=== PATIENT | male | born 1955 | race Caucasian/White ===

== ENCOUNTER 2023-09-06 14:29 | Inpatient (IN) | payer MEDICARE, OTHER, SELFPAY ==
[2023-09-05] VITALS (12 sets, daily range): BP systolic 134–149; BP diastolic 84–99; BMI 29.2; BMI 29.4
[2023-09-05 04:00] LABS: % Basophils 0.3 % (0-2); % Eosinophils 0.2 % (0-6); % Immature Granulocytes 0.2 % (0-0.5); % Lymphocytes 16.3 % (20.5-51.1); % Monocytes 10.4 % (1.7-9.3); % Neutrophils 72.6 % (42.2-75.2); Absolute Lymphocytes 1.1 10^3/uL (1.2-3.4); Absolute Monocytes 0.7 10^3/uL (0.1-0.6); Absolute Neutrophils 4.7 10^3/uL (1.4-6.5); Hematocrit 45.7 % (39.0-52.0); Mean Corpuscular Hgb 31.3 pg (27.0-31.0); Mean Corpuscular Volume 89.3 fL (80.0-94.0); Mean Platelet Volume 8.8 fL (7.4-10.4); Nucleated Red Blood Cells % 0 % (-); Platelet Count 195 10^3/uL (130-400); Red Blood Cell Count 5.12 10^6/uL (4.70-6.10); Red Cell Dist. Width 13.2 % (11.5-14.5); White Blood Cell Count 6.4 10^3/uL (4.8-10.8)
[2023-09-05 04:14] LABS: Lactic Acid 1.7 mmol/L (0.7-2.0)
[2023-09-05] MEDS: NSS 1000 IV ×2 (04:46→06:31)
[2023-09-05 05:03] LABS: ALT (SGPT) 23 U/L (0-50); AST (SGOT) 29 U/L (17-59); Albumin 4.3 g/dl (3.5-5.0); Alkaline Phosphatase 91 U/L (38-126); Blood Urea Nitrogen 16 mg/dl (9-20); Calcium 9.6 mg/dl (8.4-10.2); Carbon Dioxide 26 mmol/L (22-30); Chloride 102 mmol/L (98-107); Estimated Creatinine Clearance > 125 ml/min; Glucose 135 mg/dl (70-99); Lipase 95 U/L (23-300); Potassium 4.2 mmol/L (3.5-5.1); Sodium 139 mmol/L (135-145); Total Bilirubin 0.7 mg/dl (0.2-1.3); Total Protein 7.4 g/dl (6.3-8.2); eGFR > 60.00
--- NOTE | 2023-09-05 05:12 | ED.GENMED ---
History of Present Illness
General
Chief Complaint: Abdominal Pain
Source: patient and previous hospital records (Previous hospitalizations November 2022 for appendectomy-ruptured appendicitis. Hospitalization December 2022 for intractable nausea and vomiting related to partial small bowel obstruction related to
inflammatory adhesions.)
Exam Limitations: none
Time Seen by Provider: 09/05/23 04:27
Nursing documentation reviewed up to this point in time: agreed with
Travel History
Have you had any contact with someone who has COVID-19?: No
Do you have any symptoms of coronavirus? Fever > 100 degrees, chills, cough, shortness of breath, sore throat, loss of taste or smell, muscle aches, or headache?: No
History of Present Illness
History of Present Illness:
This is a 68-year-old gentleman who has history of perforated appendicitis who underwent appendectomy November 2022 with postop course complicated by ileus, intra-abdominal abscess and small bowel obstruction requiring additional surgical procedure
for washout and right hemicolectomy. Persistent ileus required TPN and he was admitted again in December with partial small bowel obstruction secondary to inflammatory adhesions. TPN was continued and small bowel obstruction, inflammatory
adhesions resolved without requiring additional surgery.
He has done well since then but developed moderate generalized crampy lower abdominal pain that began shortly after lunch time yesterday. Abdominal pain has been intermittent but persistent throughout the evening and was quite severe tonight
prompting EMS arrival. He has had intermittent nausea with dry heaves. He passed a normal bowel movement yesterday around 1 PM. He denies fever nor chills, he denies abdominal bloating, no chest pain nor coughing or shortness of breath, no flank
pain, no dysuria and urgency and or hematuria. He has not had a fever nor chills.
He has not taken anything for discomfort and is currently pain-free.
He is unsure if current symptoms feel similar to previous partial small bowel obstruction.
Past History
Past History
ED Past Medical History: HTN, Other (Kidney stone; Perforated appendix with appendectomy November 2022, complicated postop course with ileus, abscess formation, requiring right hemicolectomy, washout procedure and prolonged course of TPN.) and Other
(Morbid obesity); Negative NIDDM or CA
ED Past Surgical History: Appendectomy, Bowel resection, Urological (left ureteral stent 11/26/21) and Other (Hernia repair)
Social History
Tobacco: Other (Cigars)
Alcohol: None
Drug: None
Personal:
Living: with family
Employment: Employed
Family History
Family History: Other (Mother with vertigo)
Phy Exam
Physical Exam
Physical Exam:
GENERAL: 68-year-old male appears his stated age, bright and alert, pleasant, appears in no acute distress. is accompanying.
EYE: anicteric
NECK: Supple, nontender, no meningismus, no significant adenopathy.
ENT: oral mucosa is moist. No rhinorrhea.
CARDIAC: Regular rate and rhythm. no murmur.
LUNGS: Clear breath sounds bilaterally, no acute respiratory distress, no wheezes/rales/rhonchi
ABDOMEN: Soft, nondistended, without focal tenderness, no r/g, no cvat. normoactive BS.
NEUROLOGICAL: Alert and oriented x3, no focal neuro deficits.
SKIN: Warm and dry, normal color, skin intact. No rash.
MUSCULOSKELETAL: No C/C/E. peripheral pulses are full and equal b/l. No palpable tenderness.
PSYCH: Normal and appropriate interaction.
Course
Orders/Labs/Results
Orders:
Orders
09/05/23 03:23
IV Insert/Care/Rem.- Treatment PRN
09/05/23 03:27
Complete Blood Count/With Diff Urgent
Lactic Acid Urgent
09/05/23 04:21
Comprehensive Metabolic Panel Urgent
Lipase Urgent
09/05/23 04:38
CT Abd/pelvis W Iv Cont Urgent
Comment:
Reason For Exam: generalized crampy lower abd pain x 1 day w N/V
09/05/23 04:45
0.9% Sodium Chloride 1000 ml [Nss] 1,000 ml IV BOLUS
09/05/23 05:20
Urinalysis Reflex To Culture Urgent
Abnormal Lab Results
09/05/23 09/05/23
03:27 04:21
MCH 31.3 H pg
(27.0-31.0)
Absolute Lymphs (auto) 1.1 L 10^3/uL
(1.2-3.4)
Absolute Monos (auto) 0.7 H 10^3/uL
(0.1-0.6)
Lymphocytes % 16.3 L %
(20.5-51.1)
Monocytes % 10.4 H %
(1.7-9.3)
Creatinine 0.6 L mg/dL
(0.7-1.3)
Glucose 135 H mg/dl
(70-99)
09/05/23 03:27
09/05/23 04:21
Vital Signs
Initial and Last Documented VS:
Initial Vital Signs
BP Pulse Ox
140/85 97
09/05/23 03:22 09/05/23 03:22
Last Documented Vital Signs
Temp Pulse Resp BP Pulse Ox
98.7 F 77 12 142/99 94
09/05/23 03:24 09/05/23 05:00 09/05/23 05:00 09/05/23 05:00 09/05/23 04:30
MDM/Problems Addressed
Differential Diagnosis Includes:
Concern for recurrent partial small bowel obstruction, renal colic with ureteric stone, gastroenteritis, colitis.
Currently pain-free and comfortable.
Labs are pending as is urinalysis.
Will plan for CT abdomen pelvis with IV contrast. Will monitor for return of pain.
Chronic conditions affecting care: Previous abdomnial surgery and Other (History of kidney stones)
*Radiology
Radiology exam reviewed: radiology read reviewed
*Pulse Oximetry
Patient hypoxic: no
*Critical Care Note
Total Time (30-74mins, 75-104mins- exclusive of procedures): Not Applicable
Update Note
Update Note:
09/05/2023 05:55 AM
Patient remains comfortable with intermittent brief waves of nausea but no return of pain. He has not been passing gas however.
Labs are reassuring with normal white blood cell count, normal chemistries, normal lactic acid.
CAT scan however shows acute small bowel obstruction with transition point in the lower abdomen. No perforation or fluid collection.
He may have early resolution of small bowel obstruction but due to continued intermittent nausea, CAT scan findings we will continue IV fluids, n.p.o. status and will admit to hospitalist service.
ED Attending Note
-
Portions of this chart may have been created with voice recognition software.� Occasional wrong word or��sound alike� substitutions may have occurred due to the inherent limitations of voice recognition software.
Discharge Plan
Departure
Patient Disposition: Admit
Date of Disposition: 09/05/23
Time of Disposition: 06:00
Admit to: Med/Surg
Admit to doctor: Anant
Presentation/result/management discussed w/ accepting MD/DO: Hospitalist
Condition: Fair
Discharge Problem:
acute small bowel obstruction
Prescriptions:
No Action
No Current Medications
0
Referrals:
Ann Nettles DO [Family Provider] -
Interventions
Interventions:
*Risk Screen - Suicide Last Done: 09/05/23 03:24
*General Assessment Last Done: 09/05/23 03:24
*Neglect/Abuse Screening Last Done: 09/05/23 03:24
*ED COVID-19 Vaccine History Last Done: 09/05/23 03:24
PG-Vyszye-Porlibztwq Assessment Last Done: 09/05/23 03:30
Discharge Date and Time
Print Language: BENINESE
--- NOTE | 2023-09-05 06:22 | HPS.HSE ---
Family Physician
-
Family Physician: Ann Nettles
Chief Complaint
-
Abd Pain
History of Present Illness
Patient is a 68y M with PMH significant for complicated appendicitis who presents to ED complaining of abdominal pain. Patient states that he had some egg salad for lunch yesterday and had a normal BM around 1:30 in the afternoon. Later in the
afternoon, he developed crampy lower abdominal pain. His symptoms persisted throughout the day. This evening he felt nauseated and he 'tried to throw up' but had only dry heaves. He had some chills at home. Patient presented to the ED for
further evaluation and treatment.
Patient denies any chronic health issues or current medications.
Medical History
Past Medical History
Past Medical History: Reports Other
Additional Past Medical History:
Nephrolithiasis
Past Surgical History: Reports Other
Additional Past Surgical History:
Appendectomy - Right Hemicolectomy - Abdominal Washout
Herniorrhaphy
Lumbar Discectomy
Cysto / Stent
Social History
Tobacco: Smoker (Occasional cigar.)
Alcohol: None
Drug: None
Personal:
Living: With Family
Family History
Family History: Not pertinent
Allergies / Home Medications
Allergies reflects when Allergies were last updated in [facility].
Home Medications with original date entered in [facility]
Allergy/Medication List:
Allergies
Allergy/AdvReac Type Severity Reaction Status Date / Time
sesame oil [Sesame Oil] Allergy Hives Verified 09/05/23 06:05
Home Medications
No Meds [No Current Medications] 09/05/23
Review of Systems
-
History Source: Patient
A 12 point ROS was completed and negative except as noted: Yes
Constitutional: Reports Chills; Denies Fever or Fatigue
Respiratory: Denies Cough or Trouble Breathing
Cardiac: Denies Chest Pain or Palpitations
Abdomen/GI: Reports Abdominal Pain and Nausea; Denies Vomiting, Diarrhea, Constipated, Bloody Stools or Black Stools
: Denies Dysuria, Frequency or Flank Pain
Musculoskeletal: Denies Joint Pain or Edema
Neurological: Denies Dizzy or Headache
Psych: Denies Depression or Anxiety
Physical Exam
Vital Signs
Vital Signs
Temp Pulse Resp BP Pulse Ox
98.7 F 77 12 142/99 94
09/05/23 03:24 09/05/23 05:00 09/05/23 05:00 09/05/23 05:00 09/05/23 04:30
Physical Exam
General: Other (68y M in no acute distress.)
HEENT: Moist mucous membranes and PERRLA
Respiratory: Clear; No Wheezes, Rales or Rhonchi
Cardiac: S1/S2 and Regular Rhythm; No Murmur
GI: Soft, Non Tender, Non Distended and Normal Bowel Sounds
Musculoskeletal: No Clubbing, No Cyanosis and No Edema
Neuro: AO x 3
Laboratory Results
-
09/05/23 03:27
09/05/23 04:21
Laboratory Results
Lactic Acid 1.7 mmol/L (0.7-2.0) 09/05/23 03:27
Total Bilirubin 0.7 mg/dl (0.2-1.3) 09/05/23 04:21
AST 29 U/L (17-59) 09/05/23 04:21
ALT 23 U/L (0-50) 09/05/23 04:21
Alkaline Phosphatase 91 U/L (38-126) 09/05/23 04:21
Lipase 95 U/L (23-300) 09/05/23 04:21
Impression/Plan
-
A/P: Patient is a 68y M with PMH significant for complicated appendicitis 11/2022 who presents to ED complaining of abdominal pain.
SBO
- Observe for further evaluation and treatment.
- CT scan shows SBO with transition point identified in the lower abdomen.
- Initial symptoms suggestive of this; however, patient states that he now feels much improved.
- Trial of clears and advance diet if this is well tolerated.
- Follow for any recurrent pain, emesis, etc.
- Consider NG decompression if recurrent symptoms.
- CT also suggests possible, mild sigmoid diverticulitis. Afebrile, non-toxic appearing and no leukocytosis. Will observe off of abx for now.
DVT Prophylaxis: Lovenox
Code Status: Full
--- NOTE | 2023-09-05 07:56 | W.PN.HOSP.TC ---
Today's Communication/Plan
-
see A/P
Assessment / Plan
Assessment / Plan
HPI: 68y M with PMH significant for complicated appendicitis who presented to ED complaining of abdominal pain. Patient states that he had some egg salad for lunch the day prior and had a normal BM around 1:30 in the afternoon. Later in the
afternoon, he developed crampy lower abdominal pain. His symptoms persisted throughout the day. In the evening he felt nauseated and he 'tried to throw up' but had only dry heaves. He had some chills at home. Patient presented to the ED for further
evaluation and treatment.
Patient denies any chronic health issues or current medications.
CT AP:
1. Small bowel obstruction. Probable point of transition in the right lower abdomen. Distal ileum shows normal caliber. No pneumoperitoneum. No signs of abscess formation or drainable collection.
2. Cholelithiasis.
3. Nonobstructive right nephrolithiasis.
4. Diverticulosis without diverticulitis. Post right colon resection.
A/P:
# SBO
CT scan shows SBO with transition point identified in the lower abdomen.
Pain has resolved but with diminished bowel sounds, will hold off on starting clears, cont IVF with RL
Follow for any recurrent pain, emesis, etc. Consider NG decompression if recurrent symptoms.
GS CS
# Mild HTN
monitor BP
DVT Prophylaxis: Lovenox
Code Status: Full
Anticipated Discharge: Within 24 hours
Subjective/Interval History
-
Date of Service: September 05, 2023
Objective Data
-
Labs:
Laboratory Results
09/05/23 09/05/23 09/05/23
03:27 04:16 04:21
WBC 6.4
Hgb 16.0
Hct 45.7
Plt Count 195
Sodium Cancelled Cancelled 139
Potassium Cancelled Cancelled 4.2
Chloride Cancelled Cancelled 102
Carbon Dioxide Cancelled Cancelled 26
BUN Cancelled Cancelled 16
Creatinine Cancelled Cancelled 0.6 L
Glucose Cancelled Cancelled 135 H
Calcium Cancelled Cancelled 9.6
Total Bilirubin Cancelled Cancelled 0.7
AST Cancelled Cancelled 29
ALT Cancelled Cancelled 23
Alkaline Phosphatase Cancelled Cancelled 91
Vital Signs:
Vital Signs
Temp Pulse Resp BP Pulse Ox
37.1 C 79 15 146/95 95
09/05/23 03:24 09/05/23 07:30 09/05/23 07:30 09/05/23 07:00 09/05/23 07:30
Review of Systems
-
Abdomen/GI: Denies Abdominal Pain (resolved ), Nausea or Vomiting
Physical Exam
-
General: Well Developed, Well Nourished, No Apparent Distress, Comfortable and Conversant; Negative Respiratory Distress
HEENT: Normocephalic, Atraumatic, Nose Appears Normal and Ears Appear Normal; Negative Oxygen
Respiratory: Clear to Auscultation and Non Labored Respirations; Negative Accessory Resp Muscle Use
Cardiac: Regular Rhythm and S1/S2
GI: Soft, Nontender and Nondistended; Negative Normal Bowel Sounds
Skin: Warm and Dry
Neuro: Awake, Alert, Oriented and AO x 3
Psych: Calm and Intact Judgement/Insight
Data Reviewed
-
CT Scan: Report Reviewed by me
Labs: Labs Reviewed by me
--- NOTE | 2023-09-05 11:13 | CM ---
Patient seen at bedside. Patient states that he lives with his in a 2 story home. Patient has no DME at home. Patient PCP dr. Nettles and he uses the [facility] in [place]. Patient reviewed with CM OBS/JARAMILLO form and signed form placed on chart.
Patient plan is for discharge home with no needs when medically appropriate. CM will continue to follow for discharge planning needs.
Plan; home with no needs.
--- NOTE | 2023-09-05 12:19 | CON.GS ---
Consultation
-
Performing Provider: liv
Reason for Consultation: SBO
Medical History
-
Chief Complaint: Abdominal pain, nausea dry heaves
History of Present Illness:
Mr. Flores is a 68-year-old male well-known to myself after having undergone laparoscopic appendectomy 12/01/2022 for perforated appendicitis. He developed a postoperative ileus, intra-abdominal abscess and resultant small bowel obstruction requiring
takeback on 12/07/2022 which was managed with subsequent right hemicolectomy. His postoperative course from this procedure was notable for prolonged ileus requiring TPN that slowly resolved but required a prolonged course of supportive care. He
eventually returned to tolerating regular diet without any obstructive symptoms.
Patient states that he has been doing well tolerating regular diet. He does not specifically report any dietary indiscretion. Yesterday at work he began feeling abdominal crampiness which progressed. He skipped dinner since he was not feeling
well. He awoke in the middle the night with worsening diffuse crampy abdominal pain and uncontrollable nausea/dry heaves prompting him to call EMS for transport to the emergency department. CT imaging suggestive of small bowel obstruction
prompting admission.
This a.m. Mr. Flores is feeling better. No residual abdominal pain. No nausea. Not passing much flatus, no bowel movement since symptoms started yet. He has not required any pain medicine since admission.
Past Medical History
Past Medical History: Other (Hypertension, obesity, history of nephrolithiasis)
Past Surgical History: Other (Appendectomy, lap right hemicolectomy, lumbar discectomy, cystoscopy with stent placement)
Social History
Tobacco: Non-Smoker
Alcohol: None
Personal:
Living: With Family
Employment: Employed
Family History
Family History: Reviewed & Not Pertinent
Allergies / Home Medications
Allergy/AdvReac Type Severity Reaction Status Date / Time
sesame oil [Sesame Oil] Allergy Hives Verified 09/05/23 06:05
�Medication �Instructions �Recorded �Confirmed �Type
Rohto Eye Drops 1 drp BOTH EYES TIDPRN PRN dry eyes 09/05/23 09/05/23 History
Vitamin C 1 tab PO HS Supplement 09/05/23 09/05/23 History
Vitamin C Chewable 2 gummy PO DAILY Supplement 09/05/23 09/05/23 History
cholecalciferol (vitamin D3) 1 tab PO HS Supplement 09/05/23 09/05/23 History
magnesium 1 tab PO HS Electrolyte Repletion 09/05/23 09/05/23 History
melatonin 10 mg tablet 10 mg PO HS Sleep 09/05/23 09/05/23 History
thiamine HCl (vitamin B1) 1 tab PO HS Supplement 09/05/23 09/05/23 History
turmeric 400 mg capsule 400 mg PO HS Supplement 09/05/23 09/05/23 History
zinc 1 tab PO HS Supplement 09/05/23 09/05/23 History
Review of Systems
-
History Source: Patient
All other systems: Negative unless noted
A 10 point review of systems was completed, and was negative except as per HPI.
Physical Exam
Vital Signs
Temp Pulse Resp BP Pulse Ox
98.9 F 72 16 134/94 96
09/05/23 08:47 09/05/23 08:47 09/05/23 08:47 09/05/23 08:47 09/05/23 08:47
09/04/23 09/05/23 09/06/23
06:59 06:59 06:59
Actual Weight 108.8 kg 109.361 kg
Body Mass Index (BMI) 29.4
Lab Results
09/05/23 03:27
09/05/23 04:21
WBC 6.4 10^3/uL (4.8-10.8) 09/05/23 03:27
Hgb 16.0 g/dL (13.0-18.0) 09/05/23 03:27
Hct 45.7 % (39.0-52.0) 09/05/23 03:27
Plt Count 195 10^3/uL (130-400) 09/05/23 03:27
Abs Immat Gran (auto) 0.0 10^3/uL (0-0.05) 09/05/23 03:27
Neutrophils % 72.6 % (42.2-75.2) 09/05/23 03:27
Physical Exam
General: Well Developed, Well Nourished, No Apparent Distress and Comfortable
HEENT: Normocephalic, Anicteric and Moist Mucous Membranes
Respiratory: Non Labored Respirations
Cardiac: Regular Rhythm
GI: Soft, Non Tender, Distended (Slight fullness of the upper abdomen and some tympany on percussion. No percussion tenderness. Not tensely distended however.) and Other
Skin: Warm
Neuro: AO x 3
Psych: Calm
Data Reviewed
-
CT Scan: Image Personally Visualized and interpreted, Report Reviewed by me and Discussed with Patient
Labs: Labs Reviewed by me
Assessment / Plan
-
Assessment: 68-year-old male presenting with acute small bowel obstruction likely secondary to adhesions in setting of relatively recent past surgical history last November 2022.
Reviewing CT imaging there does appear to be a transition point but no evidence of pneumatosis, closed-loop obstruction, portal venous gas, free fluid, abscess or collections.
AFVSS, abdominal examination without tenderness and only slight distention.
Plan: Given no clinical or radiographic evidence of immediate bowel compromise or threat and improvement since supportive care initiated at emergency department evaluation and subsequent admission recommend continued nonoperative management with
bowel rest, IV fluid hydration and supportive care.
Will obtain follow-up abdominal x-ray imaging tomorrow a.m. and reassess at that time for possible p.o. challenge.
[2023-09-05] MEDS: LR 1000 IV ×2 (12:54→20:23)
[2023-09-05] MEDS: LOVENOX 40 MG SC (17:37)
[2023-09-05 17:57] LABS: Urine Albumin Trace (Neg - Trace); Urine Bilirubin 1+ (Negative); Urine Character Clear (Clear); Urine Color Yellow; Urine Glucose Negative (Negative); Urine Ketone 2+ (Negative); Urine Leukocyte Negative (Negative); Urine Nitrite Negative (Negative); Urine Occult Blood Negative (Negative); Urine Urobilinogen 1+ (Neg - 1+)
[2023-09-05] MEDS: ZOFRAN 4 MG IV (20:23)
[2023-09-06] MEDS: LR 1000 IV ×3 (04:20→19:41)
[2023-09-06] MEDS: ZOFRAN 4 MG IV (04:22)
[2023-09-06 06:41] LABS: Hematocrit 47.4 % (39.0-52.0); Hemoglobin 16.1 g/dL (13.0-18.0); Mean Corpuscular Hgb 31.4 pg (27.0-31.0); Mean Corpuscular Volume 92.4 fL (80.0-94.0); Mean Platelet Volume 8.8 fL (7.4-10.4); Platelet Count 192 10^3/uL (130-400); Red Blood Cell Count 5.13 10^6/uL (4.70-6.10); Red Cell Dist. Width 13.3 % (11.5-14.5); White Blood Cell Count 8.3 10^3/uL (4.8-10.8)
[2023-09-06 07:05] LABS: Blood Urea Nitrogen 17 mg/dl (9-20); Calcium 9.4 mg/dl (8.4-10.2); Carbon Dioxide 28 mmol/L (22-30); Chloride 102 mmol/L (98-107); Estimated Creatinine Clearance > 125 ml/min; Glucose 121 mg/dl (70-99); Potassium 4.2 mmol/L (3.5-5.1); Sodium 140 mmol/L (135-145); eGFR > 60.00
[2023-09-06 08:00] VITALS: BP 160/97
[2023-09-06] MEDS: OMNIPAQUE 50 ML PO (10:16)
--- NOTE | 2023-09-06 10:33 | W.PN.GS2 ---
Addendum entered and electronically signed by Yao Trivedi MD 09/06/23 12:02:
Patient seen and examined with surgical [employer]NAGER [employer] this a.m. Agree with documented progress note.
Feels okay. Mild nausea overnight at times. Abdominal pain improved. No flatus or bowel movement.
AFVSS
ABD: Soft but tympany and some mild distention in the left upper quadrant particularly.
Assessment/plan: 68-year-old male with small bowel obstruction likely secondary to adhesions.
No clinical signs of immediate bowel compromise or threat.
Need further contrast imaging to better evaluate degree of obstruction -ordered CT abdomen/pelvis with p.o. and IV contrast
Original Note:
Today's Communication / Plan
-
CT abd/pelvis
Assessment / Plan
-
Assessment: 68-year-old male presenting with acute small bowel obstruction likely secondary to adhesions in setting of relatively recent past surgical history last November 2022.
Reviewing CT imaging there does appear to be a transition point but no evidence of pneumatosis, closed-loop obstruction, portal venous gas, free fluid, abscess or collections.
AFVSS, abdominal examination without tenderness, some distention
XR with persistent SBO dilation
Plan:
Check CT abd/pelvis with PO/IV contrast
Continue NPO
IVF while NPO
Antiemetics/anlagesics prn
Subjective Data
-
Date of Service: September 06, 2023
Patient seen and examined at bedside with Dr. Trivedi. Some nausea overnight but no vomiting. No appetite. No passage of flatus.
Objective Data
-
Intake and Output
09/05/23 09/06/23 09/07/23
06:59 06:59 06:59
Intake Total 1250 / 1250
Balance 1250 / 1250
Intake:
IV fluids (Total) 1250 / 1250
Other:
Number of approximated SMALL 1
amounts of urine
Number of approximated MODERATE 3
amounts of urine
Vital Signs
Temp Pulse Resp BP Pulse Ox
98 F 70 16 160/97 100
09/06/23 08:00 09/06/23 08:00 09/06/23 08:00 09/06/23 08:00 09/06/23 08:00
Lab Results
09/06/23 06:04
09/06/23 06:04
Calcium 9.4 mg/dl (8.4-10.2) 09/06/23 06:04
Total Bilirubin 0.7 mg/dl (0.2-1.3) 09/05/23 04:21
AST 29 U/L (17-59) 09/05/23 04:21
ALT 23 U/L (0-50) 09/05/23 04:21
Alkaline Phosphatase 91 U/L (38-126) 09/05/23 04:21
Total Protein 7.4 g/dl (6.3-8.2) 09/05/23 04:21
Albumin 4.3 g/dl (3.5-5.0) 09/05/23 04:21
Physical Exam
-
NAD
ABD soft, distended, tympany to left side, nt
--- NOTE | 2023-09-06 14:25 | W.PN.HOSP.TC ---
Today's Communication/Plan
-
await surgery input re: today CT scan
Assessment / Plan
Assessment / Plan
HPI: 68y M with PMH significant for complicated appendicitis who presented to ED complaining of abdominal pain. Patient states that he had some egg salad for lunch the day prior and had a normal BM around 1:30 in the afternoon. Later in the
afternoon, he developed crampy lower abdominal pain. His symptoms persisted throughout the day. In the evening he felt nauseated and he 'tried to throw up' but had only dry heaves. He had some chills at home. Patient presented to the ED for further
evaluation and treatment.
Patient denies any chronic health issues or current medications.
CT AP:
1. Small bowel obstruction. Probable point of transition in the right lower abdomen. Distal ileum shows normal caliber. No pneumoperitoneum. No signs of abscess formation or drainable collection.
2. Cholelithiasis.
3. Nonobstructive right nephrolithiasis.
4. Diverticulosis without diverticulitis. Post right colon resection.
SBO--CT scan shows SBO with transition point identified in the lower abdomen--repeat CT scan shows progression--await surgery input re: today CT findings
Mild HTN--monitor BP
DVT Prophylaxis: Lovenox
Code Status: Full
Anticipated Discharge: > 48 hours
Subjective/Interval History
-
Date of Service: September 06, 2023
pt still with no BMs--occasional waves of nausea--says passing some flatus?
Objective Data
-
Labs:
Laboratory Results
09/06/23
06:04
WBC 8.3
Hgb 16.1
Hct 47.4
Plt Count 192
Sodium 140
Potassium 4.2
Chloride 102
Carbon Dioxide 28
BUN 17
Creatinine 0.6 L
Glucose 121 H
Calcium 9.4
Vital Signs:
max temp for 24 hours
09/05/23
23:00
Temp 99.4 F
Vital Signs
Temp Pulse Resp BP Pulse Ox
98 F 70 16 160/97 100
09/06/23 08:00 09/06/23 08:00 09/06/23 08:00 09/06/23 08:00 09/06/23 08:00
I&O
09/05/23 09/06/23 09/07/23
06:59 06:59 06:59
Intake Total 1250 / 1250
Balance 1250 / 1250
Review of Systems
-
All other systems: Reviewed and negative
Physical Exam
-
General: Well Developed, Well Nourished and No Apparent Distress
HEENT: Normocephalic and Atraumatic
Respiratory: Clear to Auscultation; Negative Wheezes or Rhonchi
Cardiac: Regular Rhythm and S1/S2; Negative Murmur
GI: Soft, Nontender, Nondistended and Normal Bowel Sounds
Musculoskeletal: No Clubbing, No Cyanosis and No Edema
Skin: Warm
Neuro: Awake
[2023-09-06 15:51] VITALS: BP 131/76
--- NOTE | 2023-09-06 16:30 | CM ---
Pt needs surgery for bowel obstruction.
Pt said her will drive him home at [place].
Offered VN he requested [facility] . Referral in care port.
PLAN Home with [facility]
[2023-09-06] MEDS: LOVENOX 40 MG SC (17:30)
[2023-09-06 23:00] VITALS: BP 126/89
[2023-09-07] MEDS: LR 1000 IV ×4 (03:35→23:20)
[2023-09-07 06:37] LABS: Hematocrit 45.6 % (39.0-52.0); Hemoglobin 15.5 g/dL (13.0-18.0); Mean Corpuscular Hgb 31.2 pg (27.0-31.0); Mean Corpuscular Volume 91.8 fL (80.0-94.0); Mean Platelet Volume 8.7 fL (7.4-10.4); Platelet Count 176 10^3/uL (130-400); Red Blood Cell Count 4.97 10^6/uL (4.70-6.10); Red Cell Dist. Width 13.2 % (11.5-14.5); White Blood Cell Count 10.1 10^3/uL (4.8-10.8)
[2023-09-07 06:59] LABS: Blood Urea Nitrogen 20 mg/dl (9-20); Calcium 9.2 mg/dl (8.4-10.2); Carbon Dioxide 34 mmol/L (22-30); Chloride 98 mmol/L (98-107); Estimated Creatinine Clearance 121 ml/min; Glucose 114 mg/dl (70-99); Potassium 3.8 mmol/L (3.5-5.1); Sodium 142 mmol/L (135-145); eGFR > 60.00
[2023-09-07 07:53] VITALS: BP 132/85
[2023-09-07] MEDS: NSS (PRESERVATIVE FREE) 10 ML IV (08:04)
[2023-09-07] MEDS: PROTONIX IV 40 MG IV (08:04)
--- NOTE | 2023-09-07 09:39 | W.PN.HOSP.TC ---
Today's Communication/Plan
-
x-ray this AM
NPO/IVF/NGT
Assessment / Plan
Assessment / Plan
pt is a 68 year old male
SBO--CT scan shows SBO with transition point identified in the lower abdomen--repeat CT scan shows progression--NGT placed--for repeat x-ray this AM--apprec surg input
Mild HTN--monitor BP
DVT Prophylaxis: Lovenox
Code Status: Full
Anticipated Discharge: > 48 hours
Subjective/Interval History
-
Date of Service: September 07, 2023
pt had NGT placed yesterday with over 4 L out
Objective Data
-
Labs:
Laboratory Results
09/07/23
06:06
WBC 10.1
Hgb 15.5
Hct 45.6
Plt Count 176
Sodium 142
Potassium 3.8
Chloride 98
Carbon Dioxide 34 H
BUN 20
Creatinine 0.7
Glucose 114 H
Calcium 9.2
Vital Signs:
max temp for 24 hours
09/06/23
23:00
Temp 99.3 F
Vital Signs
Temp Pulse Resp BP Pulse Ox
98.3 F 77 16 132/85 95
09/07/23 07:53 09/07/23 07:53 09/07/23 07:53 09/07/23 07:53 09/07/23 07:53
I&O
09/06/23 09/07/23 09/08/23
06:59 06:59 06:59
Intake Total 1250 / 1250 240 / 240
Output Total 5025 / 5025
Balance 1250 / 1250 -4785 / -4785
Review of Systems
-
All other systems: Reviewed and negative
Abdomen/GI: Denies Nausea
Physical Exam
-
General: Well Developed, Well Nourished and No Apparent Distress
HEENT: Normocephalic, Atraumatic and Other (NGT)
Respiratory: Clear to Auscultation; Negative Wheezes or Rhonchi
Cardiac: Regular Rhythm and S1/S2; Negative Murmur
GI: Soft, Nontender and Nondistended; Negative Normal Bowel Sounds (hypoactive)
Musculoskeletal: No Clubbing, No Cyanosis and No Edema
Neuro: Awake
--- NOTE | 2023-09-07 10:46 | W.PN.GS2 ---
Addendum entered and electronically signed by Yao Trivedi MD 09/07/23 13:36:
Patient seen and examined with nurse practitioner earlier in the day.
Overall patient feeling better since NG tube placement but still uncomfortable at times. Occasional cramps. No nausea or vomiting.
No flatus, no bowel movements
AFVSS
ABD: Softly distended, some tympany on percussion, no significant tenderness, no rebound rigidity or guarding
NG tube in place with light bilious outputs
A/P: 68-year-old male with small bowel obstruction likely secondary to adhesions in the setting of previous abdominal surgical history
CT imaging confirms transition point right lower quadrant but no signs suggestive of immediate bowel compromise or threat
High NG tube outputs indicative of probable high-grade obstruction
After discussions with patient will continue with an additional 24 hours of NG tube decompression
If continued obstructive symptoms tomorrow plan will very likely be for surgical intervention
Increased IV fluid rate to ensure adequate hydration given volume of gastric drainage
Continue NG tube
A.m. labs
Original Note:
Today's Communication / Plan
-
Continue NGT/npo/ivf
Assessment / Plan
-
Assessment: 68-year-old male presenting with acute small bowel obstruction likely secondary to adhesions in setting of relatively recent past surgical history last November 2022.
Reviewing CT imaging there does appear to be a transition point in the RLQ but no evidence of pneumatosis, closed-loop obstruction, portal venous gas, free fluid, abscess or collections.
NGT placed for >4.5 liters of outputs since yesterday afternoon
AFVSS
XR with persistent SBO/dilation
Labs have remained stable
Plan:
Continue NGT to LIWS for decompression
Continue NPO
IVF increased given large volume of gastric drainage
Antiemetics/anlagesics prn
Will follow expectantly, tentative operative intervention tomorrow if no improvement with medical management alone
Subjective Data
-
Date of Service: September 07, 2023
Patient seen and examined at bedside with Dr. Trivedi. Denies n/v but generally feeling unwell. Not passing flatus. Mild mid abdominal pain persists.
Objective Data
-
Intake and Output
09/06/23 09/07/23 09/08/23
06:59 06:59 06:59
Intake Total 1250 / 1250 240 / 240
Output Total 5025 / 5025
Balance 1250 / 1250 -4785 / -4785
Intake:
Oral fluids 240 / 240
IV fluids (Total) 1250 / 1250
Output:
Gastrointestinal tube output ( 4700 / 4700
Total)
Gastrostomy 4700 / 4700
Urine, Voided 325 / 325
Other:
Number of approximated SMALL 1
amounts of urine
Number of approximated MODERATE 3 2
amounts of urine
Vital Signs
Temp Pulse Resp BP Pulse Ox
98.3 F 77 16 132/85 95
09/07/23 07:53 09/07/23 07:53 09/07/23 07:53 09/07/23 07:53 09/07/23 07:53
Lab Results
09/07/23 06:06
09/07/23 06:06
Calcium 9.2 mg/dl (8.4-10.2) 09/07/23 06:06
Magnesium 2.0 mg/dl (1.6-2.3) 09/07/23 06:06
Total Bilirubin 0.7 mg/dl (0.2-1.3) 09/05/23 04:21
AST 29 U/L (17-59) 09/05/23 04:21
ALT 23 U/L (0-50) 09/05/23 04:21
Alkaline Phosphatase 91 U/L (38-126) 09/05/23 04:21
Total Protein 7.4 g/dl (6.3-8.2) 09/05/23 04:21
Albumin 4.3 g/dl (3.5-5.0) 09/05/23 04:21
Physical Exam
-
NAD
ABD soft, distended, mild tenderness to mid abd, NGT with bilious outputs
[2023-09-07 15:55] VITALS: BP 137/80
[2023-09-07] MEDS: LOVENOX 40 MG SC (17:21)
[2023-09-07 23:15] VITALS: BP 124/78
[2023-09-07] MEDS: ZOFRAN 4 MG IV (23:23)
[2023-09-08] VITALS (19 sets, daily range): BP systolic 111–160; BP diastolic 65–97; BMI 29.4
[2023-09-08] MEDS: LR 1000 IV ×2 (07:00→18:01)
[2023-09-08 07:11] LABS: Hematocrit 42.2 % (39.0-52.0); Hemoglobin 14.4 g/dL (13.0-18.0); Mean Corp Hgb Conc. 34.1 g/dL (33.0-37.0); Mean Corpuscular Hgb 31.1 pg (27.0-31.0); Mean Corpuscular Volume 91.1 fL (80.0-94.0); Mean Platelet Volume 8.6 fL (7.4-10.4); Platelet Count 164 10^3/uL (130-400); Red Blood Cell Count 4.63 10^6/uL (4.70-6.10); Red Cell Dist. Width 13.4 % (11.5-14.5); White Blood Cell Count 9.8 10^3/uL (4.8-10.8)
[2023-09-08 07:35] LABS: Blood Urea Nitrogen 20 mg/dl (9-20); Calcium 8.8 mg/dl (8.4-10.2); Carbon Dioxide 36 mmol/L (22-30); Chloride 100 mmol/L (98-107); Estimated Creatinine Clearance 105 ml/min; Glucose 102 mg/dl (70-99); Magnesium 2.1 mg/dl (1.6-2.3); Potassium 4.4 mmol/L (3.5-5.1); Sodium 139 mmol/L (135-145); eGFR > 60.00
[2023-09-08] MEDS: NSS (PRESERVATIVE FREE) 10 ML IV (08:40)
[2023-09-08] MEDS: PROTONIX IV 40 MG IV (08:40)
--- NOTE | 2023-09-08 08:51 | W.PN.GS2 ---
Today's Communication / Plan
-
`
Assessment / Plan
-
Assessment: 68-year-old male presenting with acute small bowel obstruction likely secondary to adhesions in setting of relatively recent past surgical history last November 2022.
AFVSS
Labs reviewed and stable
NG tube with continued high bilious output
Reviewed with patient indications for surgical intervention due to persistent high-grade obstruction despite NG tube decompression. Patient in agreement to pursue surgical intervention. Diagnostic laparoscopy, possible laparotomy, lysis of
adhesions, possible bowel resection was reviewed in detail with the patient confirming informed consent.
Plan: Anticipating OR today -added onto schedule. Will obtain abdominal x-ray to see if any oral contrast has progressed into the colon.
Continue NGT to LIWS for decompression
Continue NPO
Maintain IV fluids
Antiemetics/anlagesics prn
Subjective Data
-
Date of Service: September 08, 2023
Patient seen and examined.
No new abdominal pain. No nausea with NG tube in place.
No flatus, no bowel movements, no sensation of return of GI function.
Objective Data
-
Intake and Output
09/07/23 09/08/23 09/09/23
06:59 06:59 06:59
Intake Total 240 / 240 1680 / 1680
Output Total 5025 / 5025 600 / 600
Balance -4785 / -4785 1080 / 1080
Intake:
Oral fluids 240 / 240
IV fluids (Total) 1680 / 1680
Output:
Gastrointestinal tube output ( 4700 / 4700 600 / 600
Total)
Gastrostomy 4700 / 4700
[place] Sump 600 / 600
Urine, Voided 325 / 325
Other:
Number of approximated MODERATE 2
amounts of urine
Vital Signs
Temp Pulse Resp BP Pulse Ox
98.7 F 71 16 140/85 94
05/19/24 07:00 09/08/23 07:00 09/08/23 07:00 09/08/23 07:00 09/08/23 07:00
Lab Results
09/08/23 06:41
09/08/23 06:41
Calcium 8.8 mg/dl (8.4-10.2) 09/08/23 06:41
Magnesium 2.1 mg/dl (1.6-2.3) 09/08/23 06:41
Total Bilirubin 0.7 mg/dl (0.2-1.3) 09/05/23 04:21
AST 29 U/L (17-59) 09/05/23 04:21
ALT 23 U/L (0-50) 09/05/23 04:21
Alkaline Phosphatase 91 U/L (38-126) 09/05/23 04:21
Total Protein 7.4 g/dl (6.3-8.2) 09/05/23 04:21
Albumin 4.3 g/dl (3.5-5.0) 09/05/23 04:21
Physical Exam
-
NAD AAOx3
ABD: Obese, not distended but there is still tympany on percussion particularly in the upper abdomen and left upper quadrant similar to prior. No tenderness on palpation.
NG tube with continued bilious output -600 mL overnight; yesterday daytime not recorded but per nursing was 1200 mL
--- NOTE | 2023-09-08 10:22 | W.PN.HOSP.TC ---
Today's Communication/Plan
-
OR today
Assessment / Plan
Assessment / Plan
pt is a 68 year old male
SBO--CT scan shows SBO with transition point identified in the lower abdomen--repeat CT scan shows progression, xray still shows obstruction--NGT still draining--going to OR--apprec surgery
Essential HTN--monitor BP
DVT Prophylaxis: Lovenox
Code Status: Full
Anticipated Discharge: > 48 hours
Subjective/Interval History
-
Date of Service: September 08, 2023
pt going to OR
Objective Data
-
Labs:
Laboratory Results
09/08/23
06:41
WBC 9.8
Hgb 14.4
Hct 42.2
Plt Count 164
Sodium 139
Potassium 4.4
Chloride 100
Carbon Dioxide 36 H
BUN 20
Creatinine 0.8
Glucose 102 H
Calcium 8.8
Vital Signs:
max temp for 24 hours
09/07/23
15:55
Temp 99.2 F
Vital Signs
Temp Pulse Resp BP Pulse Ox
98.7 F 71 16 140/85 94
09/08/23 07:00 09/08/23 07:00 09/08/23 07:00 09/08/23 07:00 09/08/23 07:00
I&O
09/07/23 09/08/23 09/09/23
06:59 06:59 06:59
Intake Total 240 / 240 1680 / 1680
Output Total 5025 / 5025 600 / 600
Balance -4785 / -4785 1080 / 1080
Review of Systems
-
All other systems: Reviewed and negative
Physical Exam
-
General: Well Developed, Well Nourished and No Apparent Distress
HEENT: Normocephalic, Atraumatic and Other (NGT still draining)
Respiratory: Clear to Auscultation; Negative Wheezes or Rhonchi
Cardiac: Regular Rhythm and S1/S2; Negative Murmur
GI: Soft, Nontender, Nondistended and Normal Bowel Sounds
Musculoskeletal: No Clubbing, No Cyanosis and No Edema
Neuro: Awake
--- NOTE | 2023-09-08 14:02 | W.SUR.PREOP ---
Pre-Operative Surgical Note
-
I have examined this patient prior to the performance of the scheduled procedure.
The patient's condition is unchanged from the time of the current History and
Physical and the patient is able to undergo the scheduled procedure.
--- NOTE | 2023-09-08 16:19 | W.IMMPOSTOP ---
Addendum entered and electronically signed by Yao Trivedi MD 09/08/23 17:44:
#[id number]
Original Note:
Surgical Immed Post Op Note
-
Primary Surgeon: Shikha
Assisting Surgeon: None
Pre-op Diagnosis: SBO
Post-op Diagnosis: high grade SBO
Procedure Performed: Laparoscopic assisted lysis of adhesions
Anesthesia Type: GETA + 0.25% Marcaine
Specimen / Cultures: none
Estimated Blood Loss: 20mL
Complications: none immediate
Operative Findings: dense/thick band adhesion around a loop of SB with resultant high grade or complete SBO. additional adhesiolysis/enterolysis performed through combination of both straight lap, hand assist, and open approach through the hand
assist site as there were additional interloop adhesions intertwining loops of small bowel both proximal and distal to obstruction. no enterotomies no serosal tears. seprafil placed in area of dense adhesions.
Plan: NPO, IVFs, NGT decompression with supportive care awaiting post op return of GI function
[2023-09-08] MEDS: TORADOL 10 MG IV (17:20)
--- NOTE | 2023-09-08 18:15 | PTCARENOTE ---
pt returned from pacu awake and alert, reports only mild pain, currently controlled with ice pack. surgical sites CDI with glue x3 and 1 aquacel with no drainage. +BS x4. CB in reach
[2023-09-09] MEDS: LR 1000 IV ×4 (00:41→22:50)
[2023-09-09 03:31] VITALS: BP 128/71
[2023-09-09 05:49] LABS: Hematocrit 43.3 % (39.0-52.0); Hemoglobin 14.5 g/dL (13.0-18.0); Mean Corp Hgb Conc. 33.5 g/dL (33.0-37.0); Mean Corpuscular Hgb 31.4 pg (27.0-31.0); Mean Corpuscular Volume 93.7 fL (80.0-94.0); Mean Platelet Volume 8.9 fL (7.4-10.4); Platelet Count 153 10^3/uL (130-400); Red Blood Cell Count 4.62 10^6/uL (4.70-6.10); Red Cell Dist. Width 13.2 % (11.5-14.5); White Blood Cell Count 10.2 10^3/uL (4.8-10.8)
[2023-09-09 06:15] LABS: Blood Urea Nitrogen 19 mg/dl (9-20); Calcium 7.9 mg/dl (8.4-10.2); Carbon Dioxide 32 mmol/L (22-30); Chloride 104 mmol/L (98-107); Estimated Creatinine Clearance 121 ml/min; Glucose 97 mg/dl (70-99); Magnesium 2.1 mg/dl (1.6-2.3); Potassium 4.2 mmol/L (3.5-5.1); Sodium 140 mmol/L (135-145); eGFR > 60.00
[2023-09-09 07:00] VITALS: BP 113/65
[2023-09-09] MEDS: PROTONIX IV 40 MG IV (09:03)
[2023-09-09] MEDS: NSS (PRESERVATIVE FREE) 10 ML IV (09:03)
[2023-09-09] MEDS: OFIRMEV 100 IV ×3 (09:57→20:39)
--- NOTE | 2023-09-09 11:35 | W.PN.GS2 ---
Today's Communication / Plan
-
OOB/Ambulate
IS while awake
Void trial
Assessment / Plan
-
Assessment: 68-year-old male presenting with acute small bowel obstruction likely secondary to adhesions in setting of relatively recent past surgical history last November 2022. No resolution with bowel rest/decompression now POD #1 Lap assisted CARMEN
AFVSS
Labs reviewed and stable
Await bowel recovery, beginning to pass flatus
Plan:
Continue NGT to LIWS for decompression
Continue NPO
Maintain IV fluids
D/C perioperative merlos for voiding trial
IS while awake
Antiemetics/anlagesics prn. Add Ofirmev ATC.
Lovenox sq for VTE ppx/SCD's while in bed
IV protonix for GI ppx
Subjective Data
-
Date of Service: September 09, 2023
Patient seen and examined at bedside. Denies n/v. Passing some flatus. Feels quite sore post operatively.
Objective Data
-
Intake and Output
09/08/23 09/09/23 09/10/23
06:59 06:59 06:59
Intake Total 1680 / 1680 1905 / 1905
Output Total 600 / 600 1610 / 1610
Balance 1080 / 1080 295 / 295
Intake:
IV fluids (Total) 1680 / 1680 1905 / 1905
Normosol 225 / 225
Output:
Gastrointestinal tube output ( 600 / 600 400 / 400
Total)
[place] Sump 600 / 600 400 / 400
Urine, [place] 810 / 810
Urine, Voided 400 / 400
Vital Signs
Temp Pulse Resp BP Pulse Ox
98.5 F 52 18 113/65 100
09/09/23 07:00 09/09/23 07:00 09/09/23 07:00 09/09/23 07:00 09/09/23 07:00
Lab Results
09/09/23 05:20
09/09/23 05:20
Calcium 7.9 mg/dl (8.4-10.2) L 09/09/23 05:20
Magnesium 2.1 mg/dl (1.6-2.3) 09/09/23 05:20
Total Bilirubin 0.7 mg/dl (0.2-1.3) 09/05/23 04:21
AST 29 U/L (17-59) 09/05/23 04:21
ALT 23 U/L (0-50) 09/05/23 04:21
Alkaline Phosphatase 91 U/L (38-126) 09/05/23 04:21
Total Protein 7.4 g/dl (6.3-8.2) 09/05/23 04:21
Albumin 4.3 g/dl (3.5-5.0) 09/05/23 04:21
Physical Exam
-
NAD AAOx3
ABD: Obese, mild distention, incisional tenderness
Incisions well approximated with intact glue, no erythema
NG tube with bilious output
--- NOTE | 2023-09-09 12:02 | W.PN.HOSP.TC ---
Today's Communication/Plan
-
cont IVF
await return of bowel function
Assessment / Plan
Assessment / Plan
pt is a 68 year old male
SBO--CT scan shows SBO with transition point identified in the lower abdomen--repeat CT scan shows progression, xray still shows obstruction--NGT still draining--apprec surgery--post op for CARMEN (day of surg was 09/08/23)--await return of bowel
function
Essential HTN--monitor BP
DVT Prophylaxis: Lovenox
Code Status: Full
Anticipated Discharge: > 48 hours
Subjective/Interval History
-
Date of Service: September 09, 2023
pt post op--still with NGT drainage
Objective Data
-
Labs:
Laboratory Results
09/09/23
05:20
WBC 10.2
Hgb 14.5
Hct 43.3
Plt Count 153
Sodium 140
Potassium 4.2
Chloride 104
Carbon Dioxide 32 H
BUN 19
Creatinine 0.7
Glucose 97
Calcium 7.9 L
Vital Signs:
max temp for 24 hours
09/09/23
03:31
Temp 98.9 F
Vital Signs
Temp Pulse Resp BP Pulse Ox
98.5 F 52 18 113/65 100
09/09/23 07:00 09/09/23 07:00 09/09/23 07:00 09/09/23 07:00 09/09/23 07:00
I&O
09/08/23 09/09/23 09/10/23
06:59 06:59 06:59
Intake Total 1680 / 1680 1905 / 1905
Output Total 600 / 600 1610 / 1610
Balance 1080 / 1080 295 / 295
Review of Systems
-
All other systems: Reviewed and negative
Physical Exam
-
General: Well Developed, Well Nourished and No Apparent Distress
HEENT: Normocephalic, Atraumatic and Other (ngt)
Respiratory: Clear to Auscultation; Negative Wheezes or Rhonchi
Cardiac: Regular Rhythm and S1/S2; Negative Murmur
GI: Soft, Nontender, Nondistended and Normal Bowel Sounds
Musculoskeletal: No Clubbing, No Cyanosis and No Edema
Neuro: Awake and Alert
--- NOTE | 2023-09-09 12:02 | CM ---
Patient seen at bedside with physician. Patient with NG tube, patient stated that he plans to go home but pending functional assessments is unsure if he will need VN or not at this time. CM will continue to follow for discharge planning needs.
Plan; home with family watch for VN needs.
[2023-09-09 15:00] VITALS: BP 132/82
[2023-09-09] MEDS: LOVENOX 40 MG SC (17:09)
[2023-09-09 19:00] VITALS: BP 133/83
--- NOTE | 2023-09-09 19:15 | PTCARENOTE ---
Pt complained of soreness and phlegm in throat. Throat assessed, slightly red. LOGISTICS/SHIPPER made aware, new order provided, see MAR. Will continue to monitor.
[2023-09-09] MEDS: CHLORASEPTIC/SORE THROAT SPRAY 1 SPRAY PO (20:21)
[2023-09-09 23:00] VITALS: BP 125/80
[2023-09-10] MEDS: OFIRMEV 100 IV (02:17)
[2023-09-10 05:51] LABS: Hematocrit 41.6 % (39.0-52.0); Hemoglobin 13.9 g/dL (13.0-18.0); Mean Corp Hgb Conc. 33.4 g/dL (33.0-37.0); Mean Corpuscular Hgb 31.4 pg (27.0-31.0); Mean Corpuscular Volume 93.9 fL (80.0-94.0); Mean Platelet Volume 9.1 fL (7.4-10.4); Platelet Count 138 10^3/uL (130-400); Red Blood Cell Count 4.43 10^6/uL (4.70-6.10); Red Cell Dist. Width 13.2 % (11.5-14.5); White Blood Cell Count 8.3 10^3/uL (4.8-10.8)
[2023-09-10 06:06] LABS: Blood Urea Nitrogen 16 mg/dl (9-20); Calcium 7.9 mg/dl (8.4-10.2); Carbon Dioxide 27 mmol/L (22-30); Chloride 107 mmol/L (98-107); Estimated Creatinine Clearance > 125 ml/min; Glucose 91 mg/dl (70-99); Potassium 3.7 mmol/L (3.5-5.1); Sodium 138 mmol/L (135-145); eGFR > 60.00
[2023-09-10] MEDS: LR 1000 IV (06:11)
[2023-09-10 07:00] VITALS: BP 152/90
[2023-09-10] MEDS: PROTONIX IV 40 MG IV (07:22)
[2023-09-10] MEDS: NSS (PRESERVATIVE FREE) 10 ML IV (07:22)
--- NOTE | 2023-09-10 07:45 | W.PN.GS2 ---
Today's Communication / Plan
-
`
Assessment / Plan
-
Assessment: 68-year-old male POD #2 Lap assisted CARMEN for high grade/persistent SBO
AFVSS
doing well post op, AM labs WNL
NGT outputs modest/bilious
Plan:
Continue NGT to LIWS for decompression and NPO awaiting further signs of post op GI recovery
changed maintenance IVF d5/12 w/ 20kcl @120ml/hr
multimodal pain control options - added toradol today
OOBTC/ambulate as tolerated/encourage
IS while awake
Lovenox sq for VTE ppx/SCD's while in bed
IV protonix for GI ppx
Subjective Data
-
Date of Service: September 10, 2023
pt seen and examined
few passages of flatus
post op pain improving
no nausea
Objective Data
-
Intake and Output
09/09/23 09/10/23 09/11/23
06:59 06:59 06:59
Intake Total 1904 / 5 1644 / 1644
Output Total 1610 / 1610 1600 / 1600
Balance 295 / 295 44 / 44
Intake:
Oral fluids 4 / 4
IV fluids (Total) 1904 / 1904 1440 / 1440
Normosol 225 / 225
IV piggybacks 200 / 200
Output:
Gastrointestinal tube output ( 400 / 400 900 / 900
Total)
[place] Sump 400 / 400 900 / 900
Urine, [place] 810 / 810 600 / 600
Urine, Voided 400 / 400 100 / 100
Vital Signs
Temp Pulse Resp BP Pulse Ox
98.3 F 70 14 125/80 94
09/09/23 23:00 09/09/23 23:00 09/09/23 23:00 09/09/23 23:00 09/09/23 23:00
Lab Results
09/10/23 05:22
09/10/23 05:22
Calcium 7.9 mg/dl (8.4-10.2) L 09/10/23 05:22
Magnesium 2.1 mg/dl (1.6-2.3) 09/09/23 05:20
Total Bilirubin 0.7 mg/dl (0.2-1.3) 09/05/23 04:21
AST 29 U/L (17-59) 09/05/23 04:21
ALT 23 U/L (0-50) 09/05/23 04:21
Alkaline Phosphatase 91 U/L (38-126) 09/05/23 04:21
Total Protein 7.4 g/dl (6.3-8.2) 09/05/23 04:21
Albumin 4.3 g/dl (3.5-5.0) 09/05/23 04:21
Physical Exam
-
NAD AAOx3
ABD: soft, ND, minimal tenderness
incisions with glue dressing and aquacel -clean
NGT: few 100mls overnight - bilious
[2023-09-10] MEDS: D5/0.45%NSS with KCL 20 MEQ 1000 IV ×2 (09:38→17:30)
--- NOTE | 2023-09-10 11:19 | W.PN.HOSP.TC ---
Today's Communication/Plan
-
see plan
Assessment / Plan
Assessment / Plan
pt is a 68 year old male
SBO--CT scan shows SBO with transition point identified in the lower abdomen--repeat CT scan shows progression, xray still shows obstruction--NGT still draining--apprec surgery--post op for CARMEN (day of surg was 09/08/23)--await return of bowel
function
IVF
pain control
NGT irriation with mucus buildup
start mucinex (OK to hold suction after administration)
Essential HTN--monitor BP
DVT Prophylaxis: Lovenox
Code Status: Full
Anticipated Discharge: > 48 hours
Subjective/Interval History
-
Date of Service: September 10, 2023
complains of mucus stuck in throat near NGT
incision pain; controlled with meds
ambulated yesterday
Objective Data
-
Labs:
Laboratory Results
09/10/23
05:22
WBC 8.3
Hgb 13.9
Hct 41.6
Plt Count 138
Sodium 138
Potassium 3.7
Chloride 107
Carbon Dioxide 27
BUN 16
Creatinine 0.5 L
Glucose 91
Calcium 7.9 L
Vital Signs:
Vital Signs
Temp Pulse Resp BP Pulse Ox
98.6 F 76 18 152/90 94
09/10/23 07:00 09/10/23 07:00 09/10/23 07:00 09/10/23 07:00 09/10/23 07:00
I&O
09/09/23 09/10/23 09/11/23
06:59 06:59 06:59
Intake Total 1905 / 1905 1644 / 1644
Output Total 1610 / 1610 1600 / 1600
Balance 295 / 295 44 / 44
Review of Systems
-
History Source: Patient
All other systems: Reviewed and negative
Physical Exam
-
General: Well Developed, Well Nourished and No Apparent Distress
HEENT: Normocephalic, Atraumatic and Other (ngt)
Respiratory: Clear to Auscultation; Negative Wheezes or Rhonchi
Cardiac: Regular Rhythm and S1/S2; Negative Murmur
GI: Soft, Nontender, Nondistended and Normal Bowel Sounds
Musculoskeletal: No Clubbing, No Cyanosis and No Edema
Neuro: Awake and Alert
Psych: Calm
Data Reviewed
-
Diagnostic Radiology: Report Reviewed by me
Labs: Labs Reviewed by me
[2023-09-10] MEDS: MUCINEX 1200 MG PO (11:40)
--- NOTE | 2023-09-10 14:34 | CM ---
Patient seen at bedside with . Patient still with suction, stated that he has no concerns at this time. CM will continue to follow for discharge planning needs.
Plan; home with no needs; watch for home VN needs.
[2023-09-10 15:00] VITALS: BP 142/86
[2023-09-10] MEDS: LOVENOX 40 MG SC (17:28)
[2023-09-10] MEDS: MUCINEX PO (21:24)
[2023-09-10 23:34] VITALS: BP 123/78
[2023-09-11] MEDS: D5/0.45%NSS with KCL 20 MEQ 1000 IV ×3 (01:43→17:48)
[2023-09-11 06:16] LABS: Blood Urea Nitrogen 12 mg/dl (9-20); Carbon Dioxide 25 mmol/L (22-30); Chloride 106 mmol/L (98-107); Estimated Creatinine Clearance > 125 ml/min; Glucose 103 mg/dl (70-99); Magnesium 2.1 mg/dl (1.6-2.3); Potassium 3.8 mmol/L (3.5-5.1); Sodium 136 mmol/L (135-145); eGFR > 60.00
[2023-09-11 07:00] VITALS: BP 137/81
[2023-09-11] MEDS: NSS (PRESERVATIVE FREE) 10 ML IV (07:58)
[2023-09-11] MEDS: PROTONIX IV 40 MG IV (07:58)
--- NOTE | 2023-09-11 08:02 | W.PN.GS2 ---
Today's Communication / Plan
-
`
Assessment / Plan
-
Assessment: 68-year-old male POD #3 Lap assisted CARMEN for high grade/persistent SBO
AFVSS
doing well post op
NGT outputs diminishing - only 50mL last shift; +flatus
Plan: removed NGT
clear liquid diet
maintenance IVF d5/12 w/ 20kcl @120ml/hr but okay to stop IVF when jen PO intake
multimodal pain control options - PO
okay to shower
OOBTC/ambulate as tolerated/encourage
IS while awake
Lovenox sq for VTE ppx/SCD's while in bed
IV protonix for GI ppx
Subjective Data
-
Date of Service: September 11, 2023
pt seen and examined
passing flatus, no BMs
no nausea
no significant abdominal pains
Objective Data
-
Intake and Output
09/10/23 09/11/23 09/12/23
06:59 06:59 06:59
Intake Total 1644 / 1644 1525 / 1525
Output Total 1600 / 1600 2460 / 2460
Balance 44 / 44 -935 / -935
Intake:
Oral fluids 4 / 4 25 / 25
IV fluids (Total) 1440 / 1440 1440 / 1440
IV piggybacks 200 / 200
Amount instilled into GI Tube ( 60 / 60
Total)
[place] Sump 60 / 60
Output:
Gastrointestinal tube output ( 900 / 900 350 / 350
Total)
[place] Sump 900 / 900 350 / 350
Urine, [place] 600 / 600
Urine, Voided 100 / 100 2110 / 2110
Vital Signs
Temp Pulse Resp BP Pulse Ox
98.5 F 63 18 137/81 95
0522/24 07:00 09/11/23 07:00 09/11/23 07:00 09/11/23 07:00 09/11/23 07:00
Lab Results
09/10/23 05:22
09/11/23 05:17
Calcium 8.0 mg/dl (8.4-10.2) L 09/11/23 05:17
Magnesium 2.1 mg/dl (1.6-2.3) 09/11/23 05:17
Total Bilirubin 0.7 mg/dl (0.2-1.3) 09/05/23 04:21
AST 29 U/L (17-59) 09/05/23 04:21
ALT 23 U/L (0-50) 09/05/23 04:21
Alkaline Phosphatase 91 U/L (38-126) 09/05/23 04:21
Total Protein 7.4 g/dl (6.3-8.2) 09/05/23 04:21
Albumin 4.3 g/dl (3.5-5.0) 09/05/23 04:21
Physical Exam
-
NAD AAOx3
ABD: soft, ND, less tympany, minimal incisional tenderness
NGT with obiee consultant gastric contents in tubing
[2023-09-11] MEDS: MUCINEX PO ×2 (08:03→20:34)
--- NOTE | 2023-09-11 14:53 | CM ---
Patient seen at bedside with physician. Patient completed IMM and signed form placed on chart. Patient plan is for discharge tomorrow. CM will continue to follow for discharge planning needs.
Plan; home with
[2023-09-11 15:00] VITALS: BP 136/89
--- NOTE | 2023-09-11 15:21 | W.PN.HOSP.TC ---
Today's Communication/Plan
-
clears
Assessment / Plan
Assessment / Plan
pt is a 68 year old male
SBO--CT scan shows SBO with transition point identified in the lower abdomen--repeat CT scan shows progression, xray still shows obstruction--NGT still draining--apprec surgery--post op for CARMEN (day of surg was 09/08/23)--NGT out 09/10--tolerating
clears
NGT irritation with mucus buildup--start mucinex (OK to hold suction after administration)
Essential HTN--monitor BP
DVT Prophylaxis: Lovenox
Code Status: Full
Anticipated Discharge: 24 - 48 hours
Subjective/Interval History
-
Date of Service: September 11, 2023
pt off NGT and on clears--hoping to go home tomorrow
Objective Data
-
Labs:
Laboratory Results
09/11/23
05:17
Sodium 136
Potassium 3.8
Chloride 106
Carbon Dioxide 25
BUN 12
Creatinine 0.6 L
Glucose 103 H
Calcium 8.0 L
Vital Signs:
max temp for 24 hours
09/10/23
23:34
Temp 99.3 F
Vital Signs
Temp Pulse Resp BP Pulse Ox
98.5 F 63 18 137/81 95
09/11/23 07:00 09/11/23 07:00 09/11/23 07:00 09/11/23 07:00 09/11/23 07:00
I&O
09/10/23 09/11/23 09/12/23
06:59 06:59 06:59
Intake Total 1644 / 1644 1525 / 1525
Output Total 1600 / 1600 2460 / 2460
Balance 44 / 44 -935 / -935
Review of Systems
-
All other systems: Reviewed and negative
Physical Exam
-
General: Well Developed, Well Nourished and No Apparent Distress
HEENT: Normocephalic; Negative Atraumatic
Respiratory: Clear to Auscultation; Negative Wheezes or Rhonchi
Cardiac: Regular Rhythm and S1/S2; Negative Murmur
GI: Soft, Nontender, Nondistended and Normal Bowel Sounds
Musculoskeletal: No Clubbing, No Cyanosis and No Edema
Neuro: Awake
[2023-09-11] MEDS: LOVENOX 40 MG SC (17:41)
[2023-09-11] MEDS: TUMS 1 TABLET PO (21:17)
[2023-09-11 23:35] VITALS: BP 128/86
[2023-09-12] MEDS: D5/0.45%NSS with KCL 20 MEQ 1000 IV ×2 (01:27→09:34)
[2023-09-12 07:30] VITALS: BP 107/76
[2023-09-12] MEDS: NSS (PRESERVATIVE FREE) 10 ML IV (07:51)
[2023-09-12] MEDS: PROTONIX IV 40 MG IV (07:52)
[2023-09-12] MEDS: MUCINEX PO ×2 (08:00→20:24)
--- NOTE | 2023-09-12 10:34 | W.PN.GS2 ---
Today's Communication / Plan
-
`
Assessment / Plan
-
Assessment: 68-year-old male POD #4 Lap assisted CARMEN for high grade/persistent SBO
AFVSS
doing well post op
Returning GI function
Plan: Full liquid diet and advance to low residue as tolerated
multimodal pain control options - PO
okay to shower
OOBTC/ambulate as tolerated/encourage
IS while awake
Lovenox sq for VTE ppx/SCD's while in bed
Probable DC in 24 hours if tolerating dietary advancement with continued GI recovery/function
Subjective Data
-
Date of Service: September 12, 2023
Patient seen and examined.
Tolerating clear liquid diet, no nausea, no vomiting
No worsening abdominal bloating or distention
Passing flatus and has had multiple large loose bowel movements
Objective Data
-
Intake and Output
09/11/23 09/12/23 09/13/23
06:59 06:59 06:59
Intake Total 1525 / 1525 2500 / 2500
Output Total 2460 / 2460 2099 / 2099
Balance -935 / -935 400 / 400
Intake:
Oral fluids 25 / 25 1060 / 1060
IV fluids (Total) 1440 / 1440 1440 / 1440
Amount instilled into GI Tube ( 60 / 60
Total)
[place] Sump 60 / 60
Output:
Gastrointestinal tube output ( 350 / 350
Total)
[place] Sump 350 / 350
Urine, Voided 2109 / 2109
Other:
Number of approximated MODERATE 6
amounts of urine
Vital Signs
Temp Pulse Resp BP Pulse Ox
98.4 F 70 18 107/76 97
09/12/23 07:30 09/12/23 07:30 09/12/23 07:30 09/12/23 07:30 09/12/23 07:30
Lab Results
09/10/23 05:22
09/11/23 05:17
Calcium 8.0 mg/dl (8.4-10.2) L 09/11/23 05:17
Magnesium 2.1 mg/dl (1.6-2.3) 09/11/23 05:17
Total Bilirubin 0.7 mg/dl (0.2-1.3) 09/05/23 04:21
AST 29 U/L (17-59) 09/05/23 04:21
ALT 23 U/L (0-50) 09/05/23 04:21
Alkaline Phosphatase 91 U/L (38-126) 09/05/23 04:21
Total Protein 7.4 g/dl (6.3-8.2) 09/05/23 04:21
Albumin 4.3 g/dl (3.5-5.0) 09/05/23 04:21
Physical Exam
-
NAD AAOx3
ABD: Soft, nondistended, some tympany on percussion, minimal incisional tenderness
Incisions with glue dressings, no erythema, no drainage, no open wounds
--- NOTE | 2023-09-12 14:53 | VNURNOTE ---
Home Health Liaison met with patient and [id number] to discuss [facility] nurse/therapy, visits, schedule and homebound status.
Patient understands that visits at home will be 2-3 x per week to assess and teach medical management but at this time is declining [facility].
[facility] intake notified of patient declining services.
[2023-09-12 16:00] VITALS: BP 128/84
--- NOTE | 2023-09-12 16:33 | CM ---
Patient for possible discharge in 24 hours per chart review. Patient plan is for discharge home with [facility] to follow at discharge. CM will continue to follow for discharge planning needs.
Plan; home with [facility] to follow
--- NOTE | 2023-09-12 17:10 | W.PN.HOSP.TC ---
Today's Communication/Plan
-
d/c if tolerates food
Assessment / Plan
Assessment / Plan
pt is a 68 year old male
SBO--CT scan shows SBO with transition point identified in the lower abdomen--repeat CT scan showed progression, xray still showed obstruction---apprec surgery--post op for CARMEN (day of surg was 09/08/23)--NGT out 09/10--tolerating clears--advance
diet--likely home tomorrow
NGT irritation with mucus buildup--start mucinex (OK to hold suction after administration)
Essential HTN--monitor BP
DVT Prophylaxis: Lovenox
Code Status: Full
Anticipated Discharge: Within 24 hours
Subjective/Interval History
-
Date of Service: September 12, 2023
pt advancing diet
Objective Data
-
Vital Signs:
max temp for 24 hours
09/12/23
07:30
Temp 98.4 F
Vital Signs
Temp Pulse Resp BP Pulse Ox
98.4 F 69 16 128/84 96
09/12/23 16:00 09/12/23 16:00 09/12/23 16:00 09/12/23 16:00 09/12/23 16:00
I&O
09/11/23 09/12/23 09/13/23
06:59 06:59 06:59
Intake Total 1525 / 1525 2500 / 2500
Output Total 2460 / 2460 2100 / 2100
Balance -935 / -935 400 / 400
Review of Systems
-
All other systems: Reviewed and negative
Physical Exam
-
General: Well Developed, Well Nourished and No Apparent Distress
HEENT: Normocephalic and Atraumatic
Respiratory: Clear to Auscultation; Negative Wheezes or Rhonchi
Cardiac: Regular Rhythm and S1/S2; Negative Murmur
GI: Soft, Nontender, Nondistended and Normal Bowel Sounds
Musculoskeletal: No Clubbing, No Cyanosis and No Edema
Neuro: Awake
[2023-09-12] MEDS: LOVENOX 40 MG SC (17:24)
[2023-09-12 23:00] VITALS: BP 117/76
[2023-09-13 07:30] VITALS: BP 134/86
[2023-09-13] MEDS: MUCINEX 1200 MG PO (08:00)
--- NOTE | 2023-09-13 09:36 | W.PN.GS2 ---
Today's Communication / Plan
-
Continue LRD
Dispo planning
Assessment / Plan
-
Assessment: 68-year-old male POD #5 Lap assisted CARMEN for high grade/persistent SBO
AFVSS
doing well post op
Returning GI function, tolerating diet
Plan: continue LRD
multimodal pain control options - PO
okay to shower
OOBTC/ambulate as tolerated/encourage
IS while awake
Lovenox sq for VTE ppx/SCD's while in bed
Clear for discharge from surgical standpoint
Subjective Data
-
Date of Service: September 13, 2023
Patient seen and examined at bedside with Dr. Brown. Eating small meals and tolerating. Denies n/v. Passing flatus/stools.
Objective Data
-
Intake and Output
09/12/23 09/13/23 09/14/23
06:59 06:59 06:59
Intake Total 2500 / 2500 1080 / 1080 120 / 120
Output Total 2099 / 2099 6 /
Balance 400 / 400 1074 / 1074 120 / 120
Intake:
Oral fluids 1060 / 1060 600 / 600 120 / 120
IV fluids (Total) 1440 / 1440 480 / 480
Output:
Liquid stool amount
Rectum /
Urine, Voided 2099
Other:
Number of approximated MODERATE 6 4 4
amounts of urine
Number of unmeasured liquid
stools
Rectum 4
Vital Signs
Temp Pulse Resp BP Pulse Ox
97.6 F 83 16 134/86 98
09/13/23 07:30 09/13/23 07:30 09/13/23 07:30 09/13/23 07:30 09/13/23 07:30
Lab Results
09/10/23 05:22
09/11/23 05:17
Calcium 8.0 mg/dl (8.4-10.2) L 09/11/23 05:17
Magnesium 2.1 mg/dl (1.6-2.3) 09/11/23 05:17
Total Bilirubin 0.7 mg/dl (0.2-1.3) 09/05/23 04:21
AST 29 U/L (17-59) 09/05/23 04:21
ALT 23 U/L (0-50) 09/05/23 04:21
Alkaline Phosphatase 91 U/L (38-126) 09/05/23 04:21
Total Protein 7.4 g/dl (6.3-8.2) 09/05/23 04:21
Albumin 4.3 g/dl (3.5-5.0) 09/05/23 04:21
Physical Exam
-
NAD AAOx3
ABD: Soft, nondistended, some tympany on percussion, minimal incisional tenderness
Incisions with glue dressings, no erythema, no drainage, no open wounds
--- NOTE | 2023-09-13 10:29 | W.PN.HOSP.TC ---
Today's Communication/Plan
-
d/c
Assessment / Plan
Assessment / Plan
pt is a 68 year old male
SBO--CT scan shows SBO with transition point identified in the lower abdomen--repeat CT scan showed progression, xray still showed obstruction---apprec surgery--post op for CARMEN (day of surg was 09/08/23)--NGT out 09/10--tolerating clears--advance
diet--ok for d/c
NGT irritation with mucus buildup--start mucinex (OK to hold suction after administration)
Essential HTN--monitor BP
DVT Prophylaxis: Lovenox
Code Status: Full
Anticipated Discharge: Today
Subjective/Interval History
-
Date of Service: September 13, 2023
pt ok for d/c
Objective Data
-
Vital Signs:
max temp for 24 hours
09/12/23
16:00
Temp 98.4 F
Vital Signs
Temp Pulse Resp BP Pulse Ox
97.6 F 83 16 134/86 98
09/13/23 07:30 09/13/23 07:30 09/13/23 07:30 09/13/23 07:30 09/13/23 07:30
I&O
09/12/23 09/13/23 09/14/23
06:59 06:59 06:59
Intake Total 2500 / 2500 1080 / 1080 120 / 120
Output Total 2099 / 2099
Balance 400 / 400 1074 / 1074 120 / 120
Review of Systems
-
All other systems: Reviewed and negative
Physical Exam
-
General: Well Developed, Well Nourished and No Apparent Distress
HEENT: Normocephalic and Atraumatic
Respiratory: Clear to Auscultation; Negative Wheezes or Rhonchi
Cardiac: Regular Rhythm and S1/S2; Negative Murmur
GI: Soft, Nontender, Nondistended and Normal Bowel Sounds
Musculoskeletal: No Clubbing, No Cyanosis and No Edema
Neuro: Awake and Alert
[2023-09-13 10:58] VITALS: BP 141/92
--- NOTE | 2023-09-13 12:26 | CM ---
MD entered order for discharge.
Pt declined VN .
Family drove him home .
PLAn Home no needs
--- NOTE | 2023-09-13 17:37 | W.DCSUMMARY ---
Discharge Summary
Discharge Data
Date of Admission: 09/06/23
Date of Discharge: 09/13/23
-
Pending Results: No
Hospital Course
Primary care physician : Ann Nettles
Principal Discharge diagnosis : Small bowel obstruction due to adhesions from previous abdominal surgery
Chronic Discharge diagnosis : Essential hypertension
Hospital Course : Patient was a 68-year-old male with a history significant for complicated appendicitis requiring surgery who stated that he had abdominal pain. He had some eggs salad for lunch the day prior to admission and then had a normal
bowel movement around 130 in and that afternoon. Afterwards, he developed crampy lower abdominal pain. Symptoms persisted throughout the day and on the evening prior to admission he felt nauseated and tried to throw up. Unfortunately he only had
dry heaves with chills. Patient came back to the emergency department. He was found to have a small bowel obstruction and was admitted.
Problem #1: Small bowel obstruction. Patient had previous abdominal surgery as mentioned and had a prolonged hospital course at that time. Initial CAT scan is mentioned below with a small bowel obstruction. He was seen in consultation by surgery.
NG tube was placed for decompression and patient drained approximately 4-5 canisters which were later in volume. Unfortunately, patient did not improve and required lysis of adhesions by surgery on September 08, 2023. Patient did well and his
nasogastric tube was out September 10, diet was advanced and patient was tolerating by the day of discharge. He was also having bowel movements.
Problem #2: Essential hypertension. Medications were held due to his n.p.o. status. They were continued as able.
Patient is stable for discharge home at this time. If there are any questions regarding this dictation or his hospital stay, please not hesitate to call. Our office number is [phone].
Important imaging findings :
INITIAL CT SCAN IMPRESSION:
1. Small bowel obstruction. As above, probable point of transition in the right lower abdomen. Distal ileum shows normal caliber. No pneumoperitoneum. No signs of abscess formation or drainable collection.
2. Cholelithiasis.
3. Nonobstructive right nephrolithiasis.
4. Diverticulosis without diverticulitis. Post right colon resection.
FOLLOW UP CT SCAN IMPRESSION:
1. Persistent/progressing high-grade distal small bowel obstruction with transition point in the right lower quadrant.
Procedure findings :
Primary Surgeon: Shikha
Assisting Surgeon: None
Pre-op Diagnosis: SBO
Post-op Diagnosis: high grade SBO
Procedure Performed: Laparoscopic assisted lysis of adhesions
Anesthesia Type: GETA + 0.25% Marcaine
Specimen / Cultures: none
Estimated Blood Loss: 20mL
Complications: none immediate
Operative Findings: dense/thick band adhesion around a loop of SB with resultant high grade or complete SBO. additional adhesiolysis/enterolysis performed through combination of both straight lap, hand assist, and open approach through the hand
assist site as there were additional interloop adhesions intertwining loops of small bowel both proximal and distal to obstruction. no enterotomies no serosal tears. seprafil placed in area of dense adhesions.
Discharge Plan
-
Patient Disposition: Home (Routine Discharge)
Discharge Diagnosis/Procedures: Small bowel obstruction due to adhesions status post lysis of adhesions, essential hypertension
Condition: Good
Diet: Low Residue
Additional Diets: no raw fruits or vegetables until seen by your surgeon
Activity: No strenuous activity
Additional Activity: Do not lift more than 15 pounds for the next 4-6 weeks. Resume regular daily light activities, such as walking, standing and going up/down stairs as tolerated.�
Driving Restrictions: As prior to admission
Bathing Restrictions: None
Wound Care: The glue over your incisions will flake off in the next 2-3 weeks on its own. Wash incisions gently with soap and water in the shower. Call your surgeon if you have worsening abdominal pain, nausea with vomiting, redness to your
incisions or a temperature >101.
Instructions: Low Fiber Diet
Referrals:
Ann Nettles, [Family Provider] - in less than 1 week
Yao Trivedi MD [Active] - in two to three weeks
Prescriptions:
New
acetaminophen [Tylenol Extra Strength] 500 mg Tablet
1,000 mg PO Q6HPRN PRN (Reason: mild pain) Qty: 0 0RF
ibuprofen 600 mg Tablet
600 mg PO Q6HPRN PRN (Reason: moderate pain) Qty: 0 0RF
oxycodone 5 mg Tablet
5 mg PO Q4HPRN PRN (Reason: severe pain) Qty: 10 0RF
Continued
melatonin 10 mg Tablet
10 mg PO HS
turmeric 400 mg Capsule
400 mg PO HS
Rohto Eye Drops
1 drp BOTH EYES TIDPRN PRN (Reason: dry eyes)
Vitamin C Chewable
2 gummy PO DAILY
cholecalciferol (vitamin D3)
1 tab PO HS
magnesium
1 tab PO HS
thiamine HCl (vitamin B1)
1 tab PO HS
zinc
1 tab PO HS
Discontinued
Vitamin C
1 tab PO HS
Discharge Orders:
Discharge Patient (As Directed); Ordered 09/13/23
Ordered By: Shilpa Kirkland
Discharge Date and Time
Discharge Date/Time: 09/13/23 12:18
Print Language: EGYPTIAN
== END 2023-09-13 12:18 | disposition home or self-care (01) | DRG 337 ==
LOC: 3 WEST ACU 14:29
PROVIDERS: Radiology Diagnostic Radiology; Registered Nurse; Student in an Organized Health Care Education/Training Program; ADMITTING PHYSICIAN Hospitalist; ATTENDING PHYSICIAN Internal Medicine; CONSULT PHYSICIAN Surgery; EMERGENCY PHYSICIAN Emergency Medicine; FAMILY PHYSICIAN Family Medicine
PROC: 0D9670Z Drainage of Stomach with Drainage Device, Via Natural or Artificial Opening (ICD-10-PCS; 2023-09-06)
PROC: 3E0M45Z Introduction of Adhesion Barrier into Peritoneal Cavity, Percutaneous Endoscopic Approach (ICD-10-PCS; 2023-09-08)
PROC: 0DN84ZZ Release Small Intestine, Percutaneous Endoscopic Approach (ICD-10-PCS; 2023-09-08)
PROC: 0DNU4ZZ Release Omentum, Percutaneous Endoscopic Approach (ICD-10-PCS; 2023-09-08)
DX: K56.52 Intestinal adhesions [bands] with complete obstruction (principal); I10 Essential (primary) hypertension; N20.0 Calculus of kidney; K57.30 Diverticulosis of large intestine without perforation or abscess without bleeding; K80.20 Calculus of gallbladder without cholecystitis without obstruction; Z87.442 Personal history of urinary calculi; Z87.19 Personal history of other diseases of the digestive system
CPT/HCPCS: 71045; 74018; 74177; 80048; 80053; 81003; 83605; 83690; 83735; 85025; 85027; 86850; 86900; 86901; 96360; 96361; 99285; J1335; Q9967